=== PATIENT | female | born 1955 | race Caucasian/White ===

== ENCOUNTER 2023-11-15 14:56 | Inpatient (IN) | payer OTHER ==
[~2023-11-15] VITALS: Ht 175.3 cm; Wt 72.3 kg
[2023-11-15 15:05] VITALS: BP 103/59; PULSE 110; RESP 18; TEMP 98.1; O2SAT 95
[2023-11-15] MEDS ORDERED: NACL 0.9% 2,000 ML IV SCH (15:15)
[2023-11-15] MEDS ORDERED: cefTRIAXone 2,000 MG in DEXTROSE 5% 100 ML IV ONE (15:15)
[2023-11-15] MEDS ORDERED: AZITHROMYCIN 500 MG in DEXTROSE 5% 250 ML IV ONE (15:15)
[2023-11-15] MEDS ORDERED: NACL 0.9% 1,000 ML IV ONE (15:40)
[2023-11-15 16:18] LABS: HEMATOCRIT 38.2 % (36-48); HEMOGLOBIN 12.6 g/dL (12.0-16.0); MEAN CORPUSCULAR HEMOGLOBIN 30 pg (27-31); MEAN CORPUSCULAR HGB CONC 33 g/dL (33-37); MEAN CORPUSCULAR VOLUME 89.4 fL (80-94); PLATELET COUNT (AUTO) 239 K/uL (140-450); RED BLOOD CELL COUNT(AUTO) 4.27 MIL/uL (4.20-5.40); RED CELL DISTRIBUTION WIDTH 14.3 % (11.6-13.7); WHITE BLOOD COUNT (AUTO) 24.4 K/uL (4.8-10.8)
[2023-11-15] MEDS ORDERED: cefTRIAXone 2,000 MG VIAL ONE (16:29)
[2023-11-15 16:36] LABS: ANION GAP 5.8 (8-16); CALCIUM 9.8 mg/dL (8.5-10.1); CARBON DIOXIDE 39.7 mmol/L (21-32); CREATININE 0.9 mg/dL (0.6-1.3); INR 0.99 (0.8-1.2); PARTIAL THROMBOPLASTIN TIME 35.7 secs (22-35.6); POTASSIUM 5.5 mmol/L (3.5-5.1); PROTHROMBIN TIME 10.4 secs (10.8-13.4)
[2023-11-15 16:44] LABS: LACTIC ACID 1.3 mmol/L (0.4-2.0)
[2023-11-15] MEDS ORDERED: SODIUM BICARBONATE 8.4% PFS 50 MEQ/50 ML SYR IVP ONE (16:50)
[2023-11-15] MEDS ORDERED: SODIUM POLYSTYRENE 15 GM/60 ML UDBTL PO ONE (16:50)
[2023-11-15] MEDS ORDERED: CALCIUM CHLORIDE 10% 100 MG/ML SYR IVP ONE (16:50)
[2023-11-15 16:54] LABS: ALANINE AMINOTRANSFERASE 96 U/L (12-78); ALBUMIN 2.2 g/dL (3.4-5.0); ALKALINE PHOSPHATASE 140 U/L (50-136); ASPARTATE AMINOTRANSFERASE 23 U/L (15-37); BILIRUBIN,DIRECT 0.4 mg/dL (0.0-0.3); CREATINE KINASE, TOTAL 77 U/L (26-192); TOTAL PROTEIN, SERUM 8.7 g/dL (6.4-8.2)
[2023-11-15 16:57] LABS: LYMPHOCYTES % (MANUAL) 1 % (20-46); METAMYELOCYTES % 1 % (0-0); PLATELET ESTIMATE ADEQUATE
[2023-11-15 17:13] LABS: TOTAL BILIRUBIN 0.9 mg/dL (0.0-1.0)
[2023-11-15] MEDS ORDERED: AZITHROMYCIN 500 MG INJ VIAL IV ONE (18:04)
[2023-11-15] MEDS ORDERED: SODIUM POLYSTYRENE 15 GM/60 ML UDBTL ONE (18:19)
[2023-11-15 19:42] LABS: BILIRUBIN,URINE NEGATIVE (NEGATIVE); BLOOD, URINE 1+ (NEGATIVE); COLOR,URINE YELLOW (YELLOW); LEUKOCYTE ESTERASE ,URINE 3+ (NEGATIVE); NITRITE, URINE POSITIVE (NEGATIVE); PROTEIN,URINE 1+ (NEGATIVE); UGLUCOSE NEGATIVE (NEGATIVE)
[2023-11-15 19:51] LABS: APPEARANCE,URINE CLOUDY (CLEAR)
[2023-11-15 20:24] LABS: BACTERIA,URINE 3+ /HPF (None Seen); CALCIUM OXALATE CRYSTALS,UR 0-10 /HPF (None Seen); RBC,URINE 11-20 (MOD) /HPF (0-5); SQUAMOUS EPITHELIAL CELL,UR 4-10 (MOD) /LPF (0-3 (FEW)); WBC,URINE TOO MANY TO COUNT /HPF (0-5)
[2023-11-15] MEDS ORDERED: ACETAMINOPHEN 325 MG TAB GT PRN (20:30)
[2023-11-15] MEDS ORDERED: MORPHINE SULFATE 2 MG/ML SYR IVP PRN (20:30)
[2023-11-15] MEDS ORDERED: ONDANSETRON 4 MG/2 ML VIAL IVP PRN (20:30)
[2023-11-15] MEDS: NACL 0.9% 1,000 ML IV SCH (20:30)
[2023-11-15] MEDS ORDERED: hydrALAZINE 20 MG/ML VIAL IVP PRN (20:30)
[2023-11-15] MEDS ORDERED: HYDROcodone/APAP 5/325 MG 1 TAB TAB GT PRN (20:30)
[2023-11-15] MEDS ORDERED: FUROSEMIDE 20 MG/2 ML VIAL IVP ONE (21:00)
[2023-11-15] MEDS ORDERED: PIPERACILLIN/TAZOBACTAM 3.375 GM VIAL IV ONE (23:05)
[2023-11-15] MEDS ORDERED: FUROSEMIDE 40 MG/4 ML VIAL IVP ONE (23:07)
[2023-11-16] MEDS: PIPERACILLIN/TAZOBACTAM 3.375 GM in DEXTROSE 5% 50 ML IV SCH ×4 (00:26→20:38)
[2023-11-16] MEDS: ALBUTEROL SULFATE/IPRATROPIU 3 ML SOL IH SCH ×4 (03:12→18:58)
[2023-11-16 03:15] VITALS: PULSE 124; RESP 22; O2SAT 96
[2023-11-16] MEDS ORDERED: SCOP0.333 TP (05:52)
[2023-11-16] MEDS ORDERED: DOXA2TAB2 GT (05:52)
[2023-11-16] MEDS ORDERED: METO25TE2 GT (05:52)
[2023-11-16] MEDS ORDERED: KEP500L GT (05:52)
[2023-11-16] MEDS ORDERED: PIPERACILLIN/TAZOBACTAM 3.375 GM VIAL IV ONE (05:54)
[2023-11-16 07:30] VITALS: PULSE 118; RESP 32; O2SAT 96
[2023-11-16 07:41] LABS: BASOPHILS % (AUTO) 0.1 % (0.0-2.0); HEMATOCRIT 33.2 % (36-48); HEMOGLOBIN 10.7 g/dL (12.0-16.0); LYMPHOCYTES # (AUTO) 0.2 K/uL (2.5-16.5); LYMPHOCYTES % (AUTO) 0.9 % (20.5-51.1); MEAN CORPUSCULAR HEMOGLOBIN 29 pg (27-31); MEAN CORPUSCULAR HGB CONC 32 g/dL (33-37); MEAN CORPUSCULAR VOLUME 90.5 fL (80-94); MONOCYTES # (AUTO) 1.7 K/uL (0.8-1.0); MONOCYTES % (AUTO) 6.9 % (1.7-9.3); NEUTROPHILS # (AUTO) 22.7 K/uL (1.8-7.7); NEUTROPHILS % (AUTO) 92.1 % (42.2-75.2); PLATELET COUNT (AUTO) 233 K/uL (140-450); RED BLOOD CELL COUNT(AUTO) 3.67 MIL/uL (4.20-5.40); RED CELL DISTRIBUTION WIDTH 14.4 % (11.6-13.7); WHITE BLOOD COUNT (AUTO) 24.6 K/uL (4.8-10.8)
[2023-11-16 08:40] VITALS: BP 117/51; PULSE 113; PULSE 128; RESP 20; TEMP 98.7; O2SAT 94
[2023-11-16 08:44] LABS: ANION GAP 10.1 (8-16); CALCIUM 9.4 mg/dL (8.5-10.1); CARBON DIOXIDE 36.4 mmol/L (21-32); CREATININE 0.7 mg/dL (0.6-1.3); POTASSIUM 4.5 mmol/L (3.5-5.1)
[2023-11-16 14:25] VITALS: PULSE 118; RESP 28; O2SAT 96
[2023-11-16 18:58] VITALS: PULSE 116; RESP 20; O2SAT 93
[2023-11-16 20:00] VITALS: BP 144/63; PULSE 100; PULSE 122; RESP 19; TEMP 97.4; O2SAT 99
[2023-11-16] MEDS: NACL 0.9% 1,000 ML IV SCH (20:00)
[2023-11-16] MEDS: METOPROLOL 25 MG TAB GT SCH (21:04)
[2023-11-16] MEDS: levETIRAcetam 100 MG/ML ORASYR GT SCH (21:05)
[2023-11-17] VITALS (14 sets, daily range): BP systolic 91–146; BP diastolic 44–63; PULSE 67–148; RESP 18–30; TEMP 98.4–101.8; O2SAT 89–99
[2023-11-17] MEDS: ALBUTEROL SULFATE/IPRATROPIU 3 ML SOL IH SCH ×4 (01:16→19:30)
[2023-11-17] MEDS: PIPERACILLIN/TAZOBACTAM 3.375 GM in DEXTROSE 5% 50 ML IV SCH ×3 (04:33→22:57)
[2023-11-17 07:26] LABS: HEMATOCRIT 32.3 % (36-48); HEMOGLOBIN 10.5 g/dL (12.0-16.0); MEAN CORPUSCULAR HEMOGLOBIN 29 pg (27-31); MEAN CORPUSCULAR HGB CONC 33 g/dL (33-37); MEAN CORPUSCULAR VOLUME 90.3 fL (80-94); RED BLOOD CELL COUNT(AUTO) 3.58 MIL/uL (4.20-5.40); WHITE BLOOD COUNT (AUTO) 20.6 K/uL (4.8-10.8)
[2023-11-17 07:27] LABS: BASOPHILS % (AUTO) 0.1 % (0.0-2.0); EOSINOPHILS % (AUTO) 0.1 % (0.0-4.0); LYMPHOCYTES # (AUTO) 0.3 K/uL (2.5-16.5); LYMPHOCYTES % (AUTO) 1.3 % (20.5-51.1); MONOCYTES # (AUTO) 1.6 K/uL (0.8-1.0); MONOCYTES % (AUTO) 7.9 % (1.7-9.3); NEUTROPHILS # (AUTO) 18.7 K/uL (1.8-7.7); NEUTROPHILS % (AUTO) 90.6 % (42.2-75.2); PLATELET COUNT (AUTO) 268 K/uL (140-450); RED CELL DISTRIBUTION WIDTH 14.8 % (11.6-13.7)
[2023-11-17 08:02] LABS: ANION GAP 8.3 (8-16); CARBON DIOXIDE 39.1 mmol/L (21-32); CREATININE 0.6 mg/dL (0.6-1.3); POTASSIUM 3.4 mmol/L (3.5-5.1)
[2023-11-17] MEDS: POTASSIUM CHLORIDE 20% 40 MEQ/15 ML UDC PO PRN (08:51)
[2023-11-17] MEDS: levETIRAcetam 100 MG/ML ORASYR GT SCH ×2 (08:51→22:59)
[2023-11-17] MEDS: METOPROLOL 25 MG TAB GT SCH (08:52)
[2023-11-17] MEDS: DOXAZOSIN 2 MG TAB GT SCH (08:53)
[2023-11-17] MEDS: SCOPOLAMINE 1.5 MG/72 HR PATCH TD SCH (08:54)
[2023-11-17] MEDS: ACETAMINOPHEN 650 MG/20.3 ML UDC GT PRN (08:54)
[2023-11-17] MEDS ORDERED: POTASSIUM CHLORIDE 20% 40 MEQ/15 ML UDC GT SCH (11:56)
[2023-11-17] MEDS ORDERED: DIGOXIN 0.25 MG/ML AMP IV SCH ×2 (12:51→19:00)
[2023-11-17] MEDS: DILTIAZEM 60 MG TAB GT SCH ×2 (13:00→21:00)
[2023-11-17] MEDS: AMIODARONE 200 MG TAB GT SCH ×2 (13:53→21:00)
[2023-11-17 14:05] LABS: BLOOD GAS BASE EXCESS 11.8 mmol/L (-2.0-2.0); BLOOD GAS HCO3 36.4 mmol/L (22-26); BLOOD GAS PCO2 47.8 mmHg (35-45)
[2023-11-17 14:06] LABS: BLOOD GAS O2 SAT% 98.3 % (92.0-98.5)
[2023-11-17] MEDS: NACL 0.9% 1,000 ML IV SCH (20:30)
[2023-11-18] VITALS (14 sets, daily range): BP systolic 71–118; BP diastolic 51–71; PULSE 67–113; RESP 18–24; TEMP 98.8–100.7; O2SAT 95–100
[2023-11-18] MEDS ORDERED: DIGOXIN 0.25 MG/ML AMP IV SCH (01:00)
[2023-11-18] MEDS: ALBUTEROL SULFATE/IPRATROPIU 3 ML SOL IH SCH ×4 (01:26→20:02)
[2023-11-18] MEDS: ACETAMINOPHEN 650 MG/20.3 ML UDC GT PRN ×3 (01:39→20:40)
[2023-11-18] MEDS: DILTIAZEM 60 MG TAB GT SCH ×3 (05:46→20:45)
[2023-11-18] MEDS: PIPERACILLIN/TAZOBACTAM 3.375 GM in DEXTROSE 5% 50 ML IV SCH ×3 (05:48→20:46)
[2023-11-18 06:47] LABS: BASOPHILS % (AUTO) 0.1 % (0.0-2.0); EOSINOPHILS % (AUTO) 0.1 % (0.0-4.0); HEMATOCRIT 29.7 % (36-48); HEMOGLOBIN 9.6 g/dL (12.0-16.0); LYMPHOCYTES # (AUTO) 0.6 K/uL (2.5-16.5); LYMPHOCYTES % (AUTO) 3.6 % (20.5-51.1); MEAN CORPUSCULAR HEMOGLOBIN 29 pg (27-31); MEAN CORPUSCULAR HGB CONC 32 g/dL (33-37); MEAN CORPUSCULAR VOLUME 90.1 fL (80-94); MONOCYTES # (AUTO) 1.5 K/uL (0.8-1.0); NEUTROPHILS % (AUTO) 87.2 % (42.2-75.2); PLATELET COUNT (AUTO) 274 K/uL (140-450); RED BLOOD CELL COUNT(AUTO) 3.29 MIL/uL (4.20-5.40); WHITE BLOOD COUNT (AUTO) 17.2 K/uL (4.8-10.8)
[2023-11-18 07:07] LABS: ANION GAP 7.8 (8-16); CALCIUM 8.6 mg/dL (8.5-10.1); CARBON DIOXIDE 38.4 mmol/L (21-32); CREATININE 1.2 mg/dL (0.6-1.3); POTASSIUM 4.2 mmol/L (3.5-5.1)
[2023-11-18] MEDS: POTASSIUM CHLORIDE 20% 40 MEQ/15 ML UDC PO PRN (08:21)
[2023-11-18] MEDS: levETIRAcetam 100 MG/ML ORASYR GT SCH ×2 (08:21→20:41)
[2023-11-18] MEDS: AMIODARONE 200 MG TAB GT SCH ×2 (08:22→20:43)
[2023-11-18] MEDS: DOXAZOSIN 2 MG TAB GT SCH (08:23)
[2023-11-18] MEDS: NACL 0.45% 1,000 ML IV SCH (16:06)
[2023-11-19] VITALS (15 sets, daily range): BP systolic 102–151; BP diastolic 51–85; PULSE 85–120; RESP 18–28; TEMP 97.4–101.1; O2SAT 93–99
[2023-11-19] MEDS: ALBUTEROL SULFATE/IPRATROPIU 3 ML SOL IH SCH ×3 (01:28→20:17)
[2023-11-19] MEDS: NACL 0.45% 1,000 ML IV SCH ×2 (03:35→17:20)
[2023-11-19] MEDS: PIPERACILLIN/TAZOBACTAM 3.375 GM in DEXTROSE 5% 50 ML IV SCH ×3 (05:29→20:31)
[2023-11-19] MEDS: DILTIAZEM 60 MG TAB GT SCH ×3 (05:30→20:48)
[2023-11-19 07:25] LABS: BASOPHILS % (AUTO) 0.1 % (0.0-2.0); EOSINOPHILS # (AUTO) 0.1 K/uL (0-0.4); EOSINOPHILS % (AUTO) 0.4 % (0.0-4.0); HEMATOCRIT 31.7 % (36-48); HEMOGLOBIN 10.3 g/dL (12.0-16.0); LYMPHOCYTES # (AUTO) 0.7 K/uL (2.5-16.5); LYMPHOCYTES % (AUTO) 4.9 % (20.5-51.1); MEAN CORPUSCULAR HEMOGLOBIN 29 pg (27-31); MEAN CORPUSCULAR HGB CONC 32 g/dL (33-37); MEAN CORPUSCULAR VOLUME 90.4 fL (80-94); MONOCYTES # (AUTO) 1.4 K/uL (0.8-1.0); NEUTROPHILS # (AUTO) 13.1 K/uL (1.8-7.7); NEUTROPHILS % (AUTO) 85.6 % (42.2-75.2); PLATELET COUNT (AUTO) 318 K/uL (140-450); RED BLOOD CELL COUNT(AUTO) 3.51 MIL/uL (4.20-5.40); RED CELL DISTRIBUTION WIDTH 14.9 % (11.6-13.7); WHITE BLOOD COUNT (AUTO) 15.2 K/uL (4.8-10.8)
[2023-11-19 07:28] LABS: ANION GAP 8.4 (8-16); CALCIUM 8.7 mg/dL (8.5-10.1); CARBON DIOXIDE 37.4 mmol/L (21-32); CREATININE 0.9 mg/dL (0.6-1.3); POTASSIUM 3.8 mmol/L (3.5-5.1)
[2023-11-19] MEDS: levETIRAcetam 100 MG/ML ORASYR GT SCH ×2 (08:24→20:33)
[2023-11-19] MEDS: ACETAMINOPHEN 650 MG/20.3 ML UDC GT PRN (08:25)
[2023-11-19] MEDS: AMIODARONE 200 MG TAB GT SCH ×2 (08:25→20:33)
[2023-11-19] MEDS: DOXAZOSIN 2 MG TAB GT SCH (08:26)
[2023-11-20] VITALS (12 sets, daily range): BP systolic 100–121; BP diastolic 47–74; PULSE 78–96; RESP 17–30; TEMP 97.8–100.1; O2SAT 92–100
[2023-11-20] MEDS: ALBUTEROL SULFATE/IPRATROPIU 3 ML SOL IH SCH ×2 (00:24→19:55)
[2023-11-20] MEDS: ACETAMINOPHEN 650 MG/20.3 ML UDC GT PRN (04:39)
[2023-11-20] MEDS: PIPERACILLIN/TAZOBACTAM 3.375 GM in DEXTROSE 5% 50 ML IV SCH ×2 (04:40→21:19)
[2023-11-20] MEDS: DILTIAZEM 60 MG TAB GT SCH ×4 (04:40→21:18)
[2023-11-20] MEDS: NACL 0.45% 1,000 ML IV SCH ×2 (06:16→09:02)
[2023-11-20 06:37] LABS: BASOPHILS % (AUTO) 0.1 % (0.0-2.0); EOSINOPHILS # (AUTO) 0.2 K/uL (0-0.4); EOSINOPHILS % (AUTO) 0.9 % (0.0-4.0); HEMOGLOBIN 9.7 g/dL (12.0-16.0); LYMPHOCYTES % (AUTO) 5.1 % (20.5-51.1); MEAN CORPUSCULAR HEMOGLOBIN 29 pg (27-31); MEAN CORPUSCULAR HGB CONC 32 g/dL (33-37); MEAN CORPUSCULAR VOLUME 89.7 fL (80-94); MONOCYTES # (AUTO) 1.3 K/uL (0.8-1.0); MONOCYTES % (AUTO) 7.1 % (1.7-9.3); NEUTROPHILS # (AUTO) 16.3 K/uL (1.8-7.7); NEUTROPHILS % (AUTO) 86.8 % (42.2-75.2); PLATELET COUNT (AUTO) 332 K/uL (140-450); RED BLOOD CELL COUNT(AUTO) 3.35 MIL/uL (4.20-5.40); RED CELL DISTRIBUTION WIDTH 15.3 % (11.6-13.7); WHITE BLOOD COUNT (AUTO) 18.7 K/uL (4.8-10.8)
[2023-11-20 06:54] LABS: ANION GAP 9.3 (8-16); CARBON DIOXIDE 32.9 mmol/L (21-32); CREATININE 1.1 mg/dL (0.6-1.3); POTASSIUM 3.2 mmol/L (3.5-5.1)
[2023-11-20] MEDS: levETIRAcetam 100 MG/ML ORASYR GT SCH ×2 (08:31→21:19)
[2023-11-20] MEDS: AMIODARONE 200 MG TAB GT SCH ×2 (08:31→21:18)
[2023-11-20] MEDS: DOXAZOSIN 2 MG TAB GT SCH (08:36)
[2023-11-20] MEDS ORDERED: POTASSIUM CHLORIDE 20% 40 MEQ/15 ML UDC GT SCH (09:00)
[2023-11-20] MEDS: SCOPOLAMINE 1.5 MG/72 HR PATCH TD SCH (09:13)
[2023-11-21] VITALS (14 sets, daily range): BP systolic 87–111; BP diastolic 34–68; PULSE 76–111; RESP 18–27; TEMP 97–98.8; O2SAT 93–100
[2023-11-21] MEDS: ALBUTEROL SULFATE/IPRATROPIU 3 ML SOL IH SCH ×4 (01:47→19:33)
[2023-11-21] MEDS ORDERED: PIPERACILLIN/TAZOBACTAM 3.375 GM VIAL IV ONE (04:00)
[2023-11-21] MEDS: NACL 0.45% 1,000 ML IV SCH (04:08)
[2023-11-21] MEDS: DILTIAZEM 60 MG TAB GT SCH ×3 (04:09→21:00)
[2023-11-21] MEDS: PIPERACILLIN/TAZOBACTAM 3.375 GM in DEXTROSE 5% 50 ML IV SCH ×3 (04:09→23:53)
[2023-11-21 08:12] LABS: ANION GAP 11.9 (8-16); CALCIUM 7.5 mg/dL (8.5-10.1); CARBON DIOXIDE 29.7 mmol/L (21-32); CREATININE 0.8 mg/dL (0.6-1.3); POTASSIUM 3.6 mmol/L (3.5-5.1)
[2023-11-21] MEDS: AMIODARONE 200 MG TAB GT SCH ×2 (10:49→23:51)
[2023-11-21] MEDS: levETIRAcetam 100 MG/ML ORASYR GT SCH ×2 (10:50→23:52)
[2023-11-21] MEDS: DOXAZOSIN 2 MG TAB GT SCH (10:50)
[2023-11-21 15:06] LABS: BASOPHILS # (AUTO) 0.1 K/uL (0.00-0.22); BASOPHILS % (AUTO) 0.5 % (0.0-2.0); EOSINOPHILS # (AUTO) 0.3 K/uL (0-0.4); EOSINOPHILS % (AUTO) 1.7 % (0.0-4.0); HEMATOCRIT 29.9 % (36-48); HEMOGLOBIN 9.6 g/dL (12.0-16.0); LYMPHOCYTES # (AUTO) 0.9 K/uL (2.5-16.5); LYMPHOCYTES % (AUTO) 4.5 % (20.5-51.1); MEAN CORPUSCULAR HEMOGLOBIN 29 pg (27-31); MEAN CORPUSCULAR HGB CONC 32 g/dL (33-37); MEAN CORPUSCULAR VOLUME 89.9 fL (80-94); MONOCYTES # (AUTO) 0.9 K/uL (0.8-1.0); MONOCYTES % (AUTO) 4.7 % (1.7-9.3); NEUTROPHILS # (AUTO) 17.6 K/uL (1.8-7.7); NEUTROPHILS % (AUTO) 88.6 % (42.2-75.2); PLATELET COUNT (AUTO) 287 K/uL (140-450); RED BLOOD CELL COUNT(AUTO) 3.32 MIL/uL (4.20-5.40); RED CELL DISTRIBUTION WIDTH 15.3 % (11.6-13.7); WHITE BLOOD COUNT (AUTO) 19.9 K/uL (4.8-10.8)
[2023-11-22] VITALS (15 sets, daily range): BP systolic 105–119; BP diastolic 41–61; PULSE 77–92; RESP 18–23; TEMP 96.9–98.8; O2SAT 95–100
[2023-11-22] MEDS: ALBUTEROL SULFATE/IPRATROPIU 3 ML SOL IH SCH ×4 (01:47→19:25)
[2023-11-22] MEDS: DILTIAZEM 60 MG TAB GT SCH ×3 (05:00→20:47)
[2023-11-22] MEDS: PIPERACILLIN/TAZOBACTAM 3.375 GM in DEXTROSE 5% 50 ML IV SCH ×3 (06:08→20:39)
[2023-11-22] MEDS: DOXAZOSIN 2 MG TAB GT SCH (09:00)
[2023-11-22] MEDS: AMIODARONE 200 MG TAB GT SCH ×2 (10:15→20:48)
[2023-11-22] MEDS: levETIRAcetam 100 MG/ML ORASYR GT SCH ×2 (10:15→20:40)
[2023-11-23] VITALS (16 sets, daily range): BP systolic 101–148; BP diastolic 48–66; PULSE 79–105; RESP 18–27; TEMP 97.4–98.8; O2SAT 93–100
[2023-11-23] MEDS: ALBUTEROL SULFATE/IPRATROPIU 3 ML SOL IH SCH ×4 (01:16→19:47)
[2023-11-23] MEDS: DILTIAZEM 60 MG TAB GT SCH ×3 (05:30→21:40)
[2023-11-23] MEDS: PIPERACILLIN/TAZOBACTAM 3.375 GM in DEXTROSE 5% 50 ML IV SCH ×3 (05:31→21:39)
[2023-11-23 10:11] LABS: HEMATOCRIT 29.9 % (36-48); HEMOGLOBIN 9.6 g/dL (12.0-16.0); MEAN CORPUSCULAR HEMOGLOBIN 29 pg (27-31); MEAN CORPUSCULAR HGB CONC 32 g/dL (33-37); MEAN CORPUSCULAR VOLUME 89.7 fL (80-94); PLATELET COUNT (AUTO) 313 K/uL (140-450); RED BLOOD CELL COUNT(AUTO) 3.33 MIL/uL (4.20-5.40); RED CELL DISTRIBUTION WIDTH 15.1 % (11.6-13.7)
[2023-11-23 10:15] LABS: WHITE BLOOD COUNT (AUTO) 26.6 K/uL (4.8-10.8)
[2023-11-23] MEDS: DOXAZOSIN 2 MG TAB GT SCH (10:17)
[2023-11-23] MEDS: AMIODARONE 200 MG TAB GT SCH ×2 (10:18→21:39)
[2023-11-23] MEDS: levETIRAcetam 100 MG/ML ORASYR GT SCH ×2 (10:18→21:39)
[2023-11-23] MEDS: SCOPOLAMINE 1.5 MG/72 HR PATCH TD SCH (10:19)
[2023-11-23 10:39] LABS: ANION GAP 8.1 (8-16); CALCIUM 7.8 mg/dL (8.5-10.1); CARBON DIOXIDE 32.1 mmol/L (21-32); CREATININE 0.6 mg/dL (0.6-1.3); POTASSIUM 3.2 mmol/L (3.5-5.1)
[2023-11-23 11:04] LABS: BASOPHILS % (MANUAL) 0 % (0-2); BLASTS, MANUAL % 0 % (0-0); EOSINOPHILS % (MANUAL) 0 % (0-4); LYMPHOCYTES % (MANUAL) 2 % (20-46); METAMYELOCYTES % 0 % (0-0); MONOCYTES % (MANUAL) 3 % (5-12); MYELOCYTES % 0 % (0-0); OTHER CELLS,MANUAL % 0 (0-0); PROMYELOCYTES % 0 % (0-0)
[2023-11-23 11:05] LABS: PLATELET ESTIMATE ADEQUATE
[2023-11-23] MEDS ORDERED: POTASSIUM CHLORIDE 10 MEQ TABER PO SCH (12:14)
[2023-11-24] VITALS (15 sets, daily range): BP systolic 92–114; BP diastolic 52–58; PULSE 72–99; RESP 17–26; TEMP 97.4–98.3; O2SAT 93–99
[2023-11-24] MEDS: ALBUTEROL SULFATE/IPRATROPIU 3 ML SOL IH SCH ×4 (00:40→19:02)
[2023-11-24] MEDS: DILTIAZEM 60 MG TAB GT SCH ×3 (04:59→20:36)
[2023-11-24] MEDS: PIPERACILLIN/TAZOBACTAM 3.375 GM in DEXTROSE 5% 50 ML IV SCH ×3 (05:10→20:40)
[2023-11-24 06:45] LABS: BASOPHILS % (AUTO) 0.1 % (0.0-2.0); EOSINOPHILS # (AUTO) 0.3 K/uL (0-0.4); EOSINOPHILS % (AUTO) 1.8 % (0.0-4.0); HEMATOCRIT 25.9 % (36-48); HEMOGLOBIN 8.5 g/dL (12.0-16.0); LYMPHOCYTES # (AUTO) 0.7 K/uL (2.5-16.5); LYMPHOCYTES % (AUTO) 3.8 % (20.5-51.1); MEAN CORPUSCULAR HEMOGLOBIN 29 pg (27-31); MEAN CORPUSCULAR HGB CONC 33 g/dL (33-37); MEAN CORPUSCULAR VOLUME 88.8 fL (80-94); MONOCYTES # (AUTO) 0.8 K/uL (0.8-1.0); MONOCYTES % (AUTO) 4.2 % (1.7-9.3); NEUTROPHILS # (AUTO) 16.8 K/uL (1.8-7.7); NEUTROPHILS % (AUTO) 90.1 % (42.2-75.2); PLATELET COUNT (AUTO) 351 K/uL (140-450); RED BLOOD CELL COUNT(AUTO) 2.91 MIL/uL (4.20-5.40); RED CELL DISTRIBUTION WIDTH 14.3 % (11.6-13.7); WHITE BLOOD COUNT (AUTO) 18.7 K/uL (4.8-10.8)
[2023-11-24 06:55] LABS: ANION GAP 5.5 (8-16); CALCIUM 8.2 mg/dL (8.5-10.1); CARBON DIOXIDE 37.5 mmol/L (21-32); CREATININE 0.7 mg/dL (0.6-1.3)
[2023-11-24] MEDS: AMIODARONE 200 MG TAB GT SCH ×2 (10:05→20:37)
[2023-11-24] MEDS: levETIRAcetam 100 MG/ML ORASYR GT SCH ×2 (10:05→20:38)
[2023-11-24] MEDS: DOXAZOSIN 2 MG TAB GT SCH (10:06)
[2023-11-24] MEDS: POTASSIUM CHLORIDE 20% 40 MEQ/15 ML UDC PO PRN (10:09)
[2023-11-25] VITALS (14 sets, daily range): BP systolic 92–131; BP diastolic 38–70; PULSE 77–97; RESP 16–28; TEMP 98.5–99; O2SAT 91–98
[2023-11-25] MEDS: ALBUTEROL SULFATE/IPRATROPIU 3 ML SOL IH SCH ×4 (00:13→19:25)
[2023-11-25] MEDS: PIPERACILLIN/TAZOBACTAM 3.375 GM in DEXTROSE 5% 50 ML IV SCH (05:39)
[2023-11-25] MEDS: DILTIAZEM 60 MG TAB GT SCH ×3 (05:39→21:09)
[2023-11-25 05:52] LABS: BASOPHILS # (AUTO) 0.1 K/uL (0.00-0.22); BASOPHILS % (AUTO) 0.3 % (0.0-2.0); EOSINOPHILS # (AUTO) 0.2 K/uL (0-0.4); EOSINOPHILS % (AUTO) 1.2 % (0.0-4.0); HEMATOCRIT 28.3 % (36-48); HEMOGLOBIN 9.2 g/dL (12.0-16.0); LYMPHOCYTES # (AUTO) 0.5 K/uL (2.5-16.5); LYMPHOCYTES % (AUTO) 2.6 % (20.5-51.1); MEAN CORPUSCULAR HEMOGLOBIN 29 pg (27-31); MEAN CORPUSCULAR HGB CONC 32 g/dL (33-37); MEAN CORPUSCULAR VOLUME 89.4 fL (80-94); MONOCYTES # (AUTO) 0.8 K/uL (0.8-1.0); MONOCYTES % (AUTO) 3.8 % (1.7-9.3); NEUTROPHILS # (AUTO) 18.4 K/uL (1.8-7.7); NEUTROPHILS % (AUTO) 92.1 % (42.2-75.2); PLATELET COUNT (AUTO) 460 K/uL (140-450); RED BLOOD CELL COUNT(AUTO) 3.17 MIL/uL (4.20-5.40); RED CELL DISTRIBUTION WIDTH 15.1 % (11.6-13.7)
[2023-11-25 06:14] LABS: ANION GAP 7.4 (8-16); CALCIUM 8.4 mg/dL (8.5-10.1); CARBON DIOXIDE 34.2 mmol/L (21-32); CREATININE 0.6 mg/dL (0.6-1.3); POTASSIUM 4.6 mmol/L (3.5-5.1)
[2023-11-25] MEDS: DOXAZOSIN 2 MG TAB GT SCH (09:00)
[2023-11-25] MEDS: AMIODARONE 200 MG TAB GT SCH ×2 (09:00→21:10)
[2023-11-25] MEDS: POTASSIUM CHLORIDE 20% 40 MEQ/15 ML UDC PO PRN (09:37)
[2023-11-25] MEDS: levETIRAcetam 100 MG/ML ORASYR GT SCH ×2 (09:38→21:10)
[2023-11-25] MEDS: ACETAMINOPHEN 650 MG/20.3 ML UDC GT PRN (16:37)
[2023-11-26] VITALS (15 sets, daily range): BP systolic 90–140; BP diastolic 41–65; PULSE 70–90; RESP 16–26; TEMP 98–99; O2SAT 95–99
[2023-11-26] MEDS: ALBUTEROL SULFATE/IPRATROPIU 3 ML SOL IH SCH ×4 (01:12→20:01)
[2023-11-26] MEDS: DILTIAZEM 60 MG TAB GT SCH ×3 (04:49→21:02)
[2023-11-26 06:12] LABS: BASOPHILS # (AUTO) 0.1 K/uL (0.00-0.22); BASOPHILS % (AUTO) 0.5 % (0.0-2.0); EOSINOPHILS # (AUTO) 0.4 K/uL (0-0.4); EOSINOPHILS % (AUTO) 2.8 % (0.0-4.0); HEMATOCRIT 25.6 % (36-48); HEMOGLOBIN 8.2 g/dL (12.0-16.0); LYMPHOCYTES # (AUTO) 0.8 K/uL (2.5-16.5); LYMPHOCYTES % (AUTO) 5.3 % (20.5-51.1); MEAN CORPUSCULAR HEMOGLOBIN 29 pg (27-31); MEAN CORPUSCULAR HGB CONC 32 g/dL (33-37); MONOCYTES # (AUTO) 0.7 K/uL (0.8-1.0); MONOCYTES % (AUTO) 4.8 % (1.7-9.3); NEUTROPHILS # (AUTO) 12.4 K/uL (1.8-7.7); NEUTROPHILS % (AUTO) 86.6 % (42.2-75.2); PLATELET COUNT (AUTO) 463 K/uL (140-450); RED BLOOD CELL COUNT(AUTO) 2.87 MIL/uL (4.20-5.40); WHITE BLOOD COUNT (AUTO) 14.4 K/uL (4.8-10.8)
[2023-11-26 06:19] LABS: ANION GAP 7.8 (8-16); CREATININE 0.7 mg/dL (0.6-1.3); POTASSIUM 4.8 mmol/L (3.5-5.1)
[2023-11-26] MEDS: DOXAZOSIN 2 MG TAB GT SCH (10:04)
[2023-11-26] MEDS: levETIRAcetam 100 MG/ML ORASYR GT SCH ×2 (10:05→21:04)
[2023-11-26] MEDS: AMIODARONE 200 MG TAB GT SCH ×2 (10:05→21:03)
[2023-11-26] MEDS: PIPERACILLIN/TAZOBACTAM 3.375 GM in DEXTROSE 5% 50 ML IV SCH ×3 (11:59→23:12)
[2023-11-26] MEDS: SCOPOLAMINE 1.5 MG/72 HR PATCH TD SCH (12:08)
[2023-11-27] VITALS (15 sets, daily range): BP systolic 103–130; BP diastolic 49–65; PULSE 77–101; RESP 18–24; TEMP 97.3–98.7; O2SAT 94–100
[2023-11-27] MEDS: ALBUTEROL SULFATE/IPRATROPIU 3 ML SOL IH SCH ×4 (03:55→19:19)
[2023-11-27] MEDS: DILTIAZEM 60 MG TAB GT SCH ×3 (04:26→22:29)
[2023-11-27] MEDS: PIPERACILLIN/TAZOBACTAM 3.375 GM in DEXTROSE 5% 50 ML IV SCH ×4 (05:02→23:55)
[2023-11-27 05:39] LABS: BASOPHILS % (AUTO) 0.2 % (0.0-2.0); EOSINOPHILS # (AUTO) 0.5 K/uL (0-0.4); EOSINOPHILS % (AUTO) 3.2 % (0.0-4.0); HEMATOCRIT 26.7 % (36-48); HEMOGLOBIN 8.6 g/dL (12.0-16.0); LYMPHOCYTES # (AUTO) 0.8 K/uL (2.5-16.5); LYMPHOCYTES % (AUTO) 5.4 % (20.5-51.1); MEAN CORPUSCULAR HEMOGLOBIN 29 pg (27-31); MEAN CORPUSCULAR HGB CONC 32 g/dL (33-37); MEAN CORPUSCULAR VOLUME 88.6 fL (80-94); MONOCYTES # (AUTO) 0.8 K/uL (0.8-1.0); NEUTROPHILS % (AUTO) 85.2 % (42.2-75.2); PLATELET COUNT (AUTO) 523 K/uL (140-450); RED BLOOD CELL COUNT(AUTO) 3.01 MIL/uL (4.20-5.40); RED CELL DISTRIBUTION WIDTH 14.7 % (11.6-13.7)
[2023-11-27 06:05] LABS: CALCIUM 8.1 mg/dL (8.5-10.1); CARBON DIOXIDE 33.9 mmol/L (21-32); CREATININE 0.7 mg/dL (0.6-1.3); POTASSIUM 4.9 mmol/L (3.5-5.1)
[2023-11-27] MEDS: AMIODARONE 200 MG TAB GT SCH ×2 (10:15→22:29)
[2023-11-27] MEDS: DOXAZOSIN 2 MG TAB GT SCH (10:16)
[2023-11-27] MEDS: levETIRAcetam 100 MG/ML ORASYR GT SCH ×2 (10:16→22:29)
[2023-11-28] VITALS (16 sets, daily range): BP systolic 103–130; BP diastolic 47–71; PULSE 78–89; RESP 17–22; TEMP 97.5–98.8; O2SAT 95–98
[2023-11-28] MEDS: ALBUTEROL SULFATE/IPRATROPIU 3 ML SOL IH SCH ×3 (01:06→13:58)
[2023-11-28 05:19] LABS: BASOPHILS # (AUTO) 0.1 K/uL (0.00-0.22); BASOPHILS % (AUTO) 0.6 % (0.0-2.0); EOSINOPHILS # (AUTO) 0.4 K/uL (0-0.4); EOSINOPHILS % (AUTO) 3.2 % (0.0-4.0); HEMATOCRIT 25.9 % (36-48); HEMOGLOBIN 8.6 g/dL (12.0-16.0); LYMPHOCYTES # (AUTO) 0.7 K/uL (2.5-16.5); LYMPHOCYTES % (AUTO) 6.7 % (20.5-51.1); MEAN CORPUSCULAR HEMOGLOBIN 29 pg (27-31); MEAN CORPUSCULAR HGB CONC 33 g/dL (33-37); MEAN CORPUSCULAR VOLUME 87.6 fL (80-94); MONOCYTES # (AUTO) 0.8 K/uL (0.8-1.0); MONOCYTES % (AUTO) 6.8 % (1.7-9.3); NEUTROPHILS # (AUTO) 9.3 K/uL (1.8-7.7); NEUTROPHILS % (AUTO) 82.7 % (42.2-75.2); PLATELET COUNT (AUTO) 561 K/uL (140-450); RED BLOOD CELL COUNT(AUTO) 2.95 MIL/uL (4.20-5.40); WHITE BLOOD COUNT (AUTO) 11.2 K/uL (4.8-10.8)
[2023-11-28 05:51] LABS: ANION GAP 8.9 (8-16); CALCIUM 8.2 mg/dL (8.5-10.1); CARBON DIOXIDE 33.7 mmol/L (21-32); CREATININE 0.8 mg/dL (0.6-1.3); POTASSIUM 4.6 mmol/L (3.5-5.1)
[2023-11-28] MEDS: PIPERACILLIN/TAZOBACTAM 3.375 GM in DEXTROSE 5% 50 ML IV SCH ×3 (06:26→17:13)
[2023-11-28] MEDS: DILTIAZEM 60 MG TAB GT SCH ×2 (06:32→12:01)
[2023-11-28] MEDS: AMIODARONE 200 MG TAB GT SCH (08:33)
[2023-11-28] MEDS: levETIRAcetam 100 MG/ML ORASYR GT SCH (08:33)
[2023-11-28] MEDS: DOXAZOSIN 2 MG TAB GT SCH (08:34)
[2023-11-28] MEDS ORDERED: AMIO200T10 GT (12:09)
[2023-11-28] MEDS ORDERED: ACET650S53 GT (12:09)
[2023-11-28] MEDS ORDERED: DILT60TA97 GT (12:13)
[2023-11-28] MEDS ORDERED: ALBU3SOL83 IH (12:26)
[2023-11-28] MEDS ORDERED: ACETYLCYSTEINE 20% (200 MG/ML) 200 MG/ML VIAL INH SCH ×2 (13:52→19:00)
== END 2023-11-28 19:35 | DRG 870 ==
LOC: MED 14:56 → MTU 20:40
PROVIDERS: ADMIT Family Medicine; ATTEND Family Medicine
PROC: 5A1955Z Respiratory Ventilation, Greater than 96 Consecutive Hours (ICD-10-PCS; principal; 2023-11-17)
PROC: 0B9D8ZX Drainage of Right Middle Lung Lobe, Via Natural or Artificial Opening Endoscopic, Diagnostic (ICD-10-PCS; 2023-11-24)
DX: A41.9 Sepsis, unspecified organism (principal); J15.69 Pneumonia due to other Gram-negative bacteria; E43 Unspecified severe protein-calorie malnutrition; J96.21 Acute and chronic respiratory failure with hypoxia; N17.0 Acute kidney failure with tubular necrosis; J15.9 Unspecified bacterial pneumonia; J44.0 Chronic obstructive pulmonary disease with (acute) lower respiratory infection; N39.0 Urinary tract infection, site not specified; E87.0 Hyperosmolality and hypernatremia; R13.10 Dysphagia, unspecified; I48.0 Paroxysmal atrial fibrillation; G40.909 Epilepsy, unspecified, not intractable, without status epilepticus; F03.90 Unspecified dementia, unspecified severity, without behavioral disturbance, psychotic disturbance, mood disturbance, and anxiety; Z93.0 Tracheostomy status; Z93.1 Gastrostomy status; Z79.01 Long term (current) use of anticoagulants; Z68.23 Body mass index [BMI] 23.0-23.9, adult
CPT/HCPCS: 36415; 36600; 71045; 71250; 80048; 80076; 81001; 82550; 82803; 83605; 83880; 84484; 85025; 85610; 85730; 87040; 87070; 87081; 87086; 87102; 87116; 87190; 87205; 87206; 89220; 93005; 94002; 94003; 94640; 94667; 96361; 96365; 96375; 99291; J0360; J0456; J0696; J1160; J1644; J1940; J2270; J2543; J7060; J7608; Q0092